=== PATIENT | male | born 1990 | race Caucasian/White ===

== ENCOUNTER 2018-04-21 20:42 | Emergency (ER) | payer OTHER ==
[2018-04-21] MEDS ORDERED: ONDANSETRON 4 MG/2 ML VIAL ONE (20:50)
[2018-04-21] MEDS ORDERED: PROPOFOL/EMULSION 1,000 MG/100 ML BOTTLE IV ONE (20:55)
[2018-04-21] MEDS ORDERED: fentaNYL 100 MCG/2 ML INJ IVP ONE (20:56)
[2018-04-21] MEDS ORDERED: ONDANSETRON 4 MG/2 ML VIAL IVP ONE (20:56)
[2018-04-21] MEDS ORDERED: NS 1,000 ML IV ONE (20:56)
[2018-04-21 21:00] LABS: PLATELET COUNT 329 10^3/uL (150-400)
[2018-04-21] MEDS ORDERED: PROPOFOL/EMULSION 100 ML IV SCH (21:00)
[2018-04-21] MEDS ORDERED: TDAP ADULT 0.5 ML INJ (BOOSTRIX) IM ONE (21:08)
[2018-04-21] MEDS ORDERED: CEFAZOLIN 1 GM/DEXTROSE/50 ML BAG IV ONE (21:09)
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
[2018-04-21] MEDS ORDERED: MIDAZOLAM 2 MG/2 ML VIAL IVP ONE (22:34)
[2018-04-21 22:38] VITALS: BP 122/81
[2018-04-21] MEDS ORDERED: MIDAZOLAM HCL 50 MG in NS 50 ML IV SCH (22:45)
[2018-04-21] MEDS ORDERED: fentaNYL 100 MCG/2 ML INJ ONE (23:11)
[2018-04-21] MEDS ORDERED: ETOMIDATE 40 MG/20 ML INJ ONE (23:12)
[2018-04-21] MEDS ORDERED: SUCCINYLCHOLINE CHLORIDE 200 MG/10 ML SYR IVP ONE (23:13)
[2018-04-21] MEDS ORDERED: ROCURONIUM 100 MG/10 ML VIAL ONE (23:13)
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
== END 2018-04-21 22:35 | disposition short-term general hospital (02) ==
LOC: EDUNIT#
PROC: 0BH17EZ Insertion of Endotracheal Airway into Trachea, Via Natural or Artificial Opening (ICD-10-PCS; principal; 2018-04-21)
DX: S02.602A Fracture of unspecified part of body of left mandible, initial encounter for closed fracture (principal); S02.40DA Maxillary fracture, left side, initial encounter for closed fracture; S02.40CA Maxillary fracture, right side, initial encounter for closed fracture; S02.40FA Zygomatic fracture, left side, initial encounter for closed fracture; S02.82XA Fracture of other specified skull and facial bones, left side, initial encounter for closed fracture; J39.8 Other specified diseases of upper respiratory tract; Y92.9 Unspecified place or not applicable; Z23 Encounter for immunization; E86.9 Volume depletion, unspecified
CPT/HCPCS: 80305; 82435-PO; 82565-PO; 82947-PO; 84132-PO; 84295-PO; 84520-PO; 85014-PO; 96365; G0480; J0330; J0690; J2250; J2270; J2405; J2704; J3010